=== PATIENT | male | born 1960 | race Two or more races ===

== ENCOUNTER 2020-03-20 07:28 | Inpatient (IN) | payer MEDICAID ==
[~2020-03-20] VITALS: Ht 167.6 cm; Wt 82.4 kg
[2020-03-20] MEDS ORDERED: BACITRACIN 0.9 GM PACKET OINTMENT TP ONE (08:30)
[2020-03-20 08:50] LABS: GLUCOSE,POINT OF CARE 111 MG/DL (70-110)
[2020-03-20 08:52] LABS: BASOPHILS % (AUTO) 0.3 % (0.0-2.0); EOSINOPHILS % (AUTO) 0.3 % (1.0-6.0); LYMPHOCYTES # (AUTO) 2.2 K/uL (1.0-4.8); LYMPHOCYTES % (AUTO) 21.4 % (22.0-44.0); MEAN CORPUSCULAR HEMOGLOBIN 30.5 pg (26.0-34.0); MEAN CORPUSCULAR HGB CONC 34.3 G/dL (31.0-37.0); MEAN CORPUSCULAR VOLUME 89 fL (80-100); MONOCYTES # (AUTO) 0.9 K/uL (0.1-1.0); MONOCYTES % (AUTO) 9.2 % (2.0-9.0); NEUTROPHILS # (AUTO) 6.9 K/uL (1.8-7.7); NEUTROPHILS % (AUTO) 68.8 % (40.0-70.0); PLATELET COUNT (AUTO) 228 K/uL (150-450); RED BLOOD CELL COUNT(AUTO) 4.28 MIL/uL (4.50-5.90); RED CELL DISTRIBUTION WIDTH 13.6 % (11.5-14.5)
[2020-03-20 09:04] LABS: ANION GAP 8 mmol/L (8-16); CALCIUM, TOTAL 8.8 mg/dL (8.8-10.5); CARBON DIOXIDE 28 mmol/L (22-29); CHLORIDE 102 mmol/L (98-107); CREATININE 1.06 mg/dL (0.60-1.30); GLOMERULAR FILTR. RATE CALC > 60 mL/min (>60); GLUCOSE,RANDOM 120 mg/dL (70-110); POTASSIUM 3.4 mmol/L (3.5-5.1); SODIUM SERUM 138 mmol/L (136-145); UREA NITROGEN, BLOOD 17 mg/dL (7-18)
[2020-03-20 09:19] LABS: ALANINE AMINOTRANSFERASE 31 U/L (12-78); ALBUMIN 3.6 g/dL (3.4-5.0); ALKALINE PHOSPHATASE 123 U/L (46-116); ASPARTATE AMINOTRANSFERASE 25 U/L (15-37); BILIRUBIN,TOTAL 1.1 mg/dL (0.1-1.0); FREE T4 (FREE THYROXINE) 1.05 ng/dL (0.76-1.46); THYROID STIMULATING HORMONE 0.95 uIU/mL (0.36-3.74); TOTAL PROTEIN, SERUM 7.5 g/dL (6.4-8.2)
[2020-03-20] MEDS ORDERED: POTASSIUM CHLORIDE 20 MEQ ER TABLET PO ONE (12:15)
[2020-03-20 18:00] LABS: COVID AG,FIA SOURCE NASOPHARYNGEAL
[2020-03-20] MEDS ORDERED: HALOPERIDOL 5 MG TABLET PO PRN (18:15)
[2020-03-20] MEDS ORDERED: LORazepam 2 MG TABLET PO PRN (18:15)
[2020-03-20 21:05] VITALS: BP 136/84
[2020-03-20] MEDS ORDERED: PNEUMOCOCCAL VACCINE POLYVALENT 0.5 ML VIAL [PPSV23] IM ONE (21:15)
[2020-03-20] MEDS ORDERED: INFLUENZA VIRUS VACCINE QVS 2020-21 (6MO+)/PF 60 MCG/0.5 ML SYRINGE IM ONE (21:15)
[2020-03-21 06:52] VITALS: BP 126/80
[2020-03-21 06:59] LABS: GLUCOMETER DEV NAME(LOC) BV2S.; GLUCOSE,POINT OF CARE 89 MG/DL (70-110)
[2020-03-21 07:48] LABS: HEMOGLOBIN A1C 5.5 % (3.8-5.6)
[2020-03-21 07:59] LABS: CHOL/HDL RATIO 2.3 (4.2-7.3); FREE T4 (FREE THYROXINE) 1.01 ng/dL (0.76-1.46); POTASSIUM 3.6 mmol/L (3.5-5.1); THYROID STIMULATING HORMONE 0.32 uIU/mL (0.36-3.74)
[2020-03-21] MEDS ORDERED: LOPERAMIDE HCL 2 MG CAPSULE PO PRN (08:00)
[2020-03-21] MEDS ORDERED: DOCUSATE SODIUM 100 MG CAPSULE PO PRN (08:00)
[2020-03-21] MEDS ORDERED: NICOTINE 14 MG/24 HOUR PATCH TD PRN (08:00)
[2020-03-21] MEDS ORDERED: ALBUTEROL SULFATE HFA 90 MCG/PUFF 8 GM INHALER IH PRN (08:00)
[2020-03-21] MEDS ORDERED: PETROLATUM,WHITE 28 GM JELLY TP PRN (08:00)
[2020-03-21] MEDS ORDERED: IBUPROFEN 400 MG TABLET PO PRN (08:00)
[2020-03-21] MEDS ORDERED: GuaiFENesin/D-METHORPHAN [SUGAR-FREE] 200-20MG/10 ML SYRUP UDCUP PO PRN (08:00)
[2020-03-21] MEDS ORDERED: ONDANSETRON HCL 4 MG TABLET PO PRN (08:00)
[2020-03-21] MEDS ORDERED: MAG HYDROX/AL HYDROX/SIMETH ES 30 ML SUSPENSION UDCUP PO PRN (08:00)
[2020-03-21] MEDS ORDERED: CloNIDine HCL 0.1 MG TABLET PO PRN (08:00)
[2020-03-21] MEDS ORDERED: MAGNESIUM HYDROXIDE SUSPENSION 30 ML UDCUP PO PRN (08:00)
[2020-03-21] MEDS ORDERED: ACETAMINOPHEN 325 MG TABLET PO PRN (08:00)
[2020-03-21 08:31] VITALS: BP 146/96
[2020-03-21] MEDS: BACITRACIN 28 GM OINTMENT TP SCH ×2 (08:41→16:22)
[2020-03-21] MEDS: OLANZapine 5 MG TABLET PO SCH (16:22)
[2020-03-21 16:51] VITALS: BP 144/51
[2020-03-22 03:21] VITALS: BP 152/78
[2020-03-22 08:40] VITALS: BP 107/62
[2020-03-22] MEDS: OLANZapine 5 MG TABLET PO SCH ×2 (09:00→18:52)
[2020-03-22] MEDS: BACITRACIN 28 GM OINTMENT TP SCH ×2 (09:31→18:52)
[2020-03-22 18:57] LABS: COVID AG,FIA SOURCE NASAL SWAB
[2020-03-23 05:07] VITALS: BP 110/64
[2020-03-23 08:08] VITALS: BP 150/77
[2020-03-23] MEDS: BACITRACIN 28 GM OINTMENT TP SCH ×2 (08:40→16:28)
[2020-03-23] MEDS: OLANZapine 5 MG TABLET PO SCH ×2 (08:40→16:27)
[2020-03-23 16:07] VITALS: BP 130/65
[2020-03-24 02:10] VITALS: BP 147/100
[2020-03-24 08:08] VITALS: BP 118/81
[2020-03-24] MEDS: OLANZapine 5 MG TABLET PO SCH ×2 (08:56→16:28)
[2020-03-24] MEDS: BACITRACIN 28 GM OINTMENT TP SCH ×2 (08:56→16:28)
[2020-03-24 16:28] VITALS: BP 143/98
[2020-03-25 08:06] VITALS: BP 147/83
[2020-03-25] MEDS: OLANZapine 5 MG TABLET PO SCH ×2 (09:09→16:46)
[2020-03-25] MEDS: BACITRACIN 28 GM OINTMENT TP SCH ×2 (09:09→16:47)
[2020-03-25 16:08] VITALS: BP 145/88
[2020-03-26 06:30] VITALS: BP 144/87
[2020-03-26] MEDS: OLANZapine 5 MG TABLET PO SCH ×2 (09:06→17:35)
[2020-03-26] MEDS: BACITRACIN 28 GM OINTMENT TP SCH ×2 (09:06→17:42)
[2020-03-26 09:56] VITALS: BP 134/82
[2020-03-26 16:20] VITALS: BP 133/73
[2020-03-27 06:55] VITALS: BP 126/80
[2020-03-27 08:10] VITALS: BP 131/81
[2020-03-27] MEDS: MULTIVITAMINS WITH MINERALS, THERAPEUTIC TABLET PO SCH (08:18)
[2020-03-27] MEDS: OLANZapine 5 MG TABLET PO SCH ×2 (08:18→16:54)
[2020-03-27] MEDS: BACITRACIN 28 GM OINTMENT TP SCH ×2 (08:18→16:54)
[2020-03-27 16:27] VITALS: BP 128/84
[2020-03-28 04:01] VITALS: BP 125/80
[2020-03-28 08:10] VITALS: BP 123/71
[2020-03-28] MEDS: BACITRACIN 28 GM OINTMENT TP SCH ×2 (08:29→16:49)
[2020-03-28] MEDS: OLANZapine 5 MG TABLET PO SCH ×2 (08:30→16:49)
[2020-03-28] MEDS: MULTIVITAMINS WITH MINERALS, THERAPEUTIC TABLET PO SCH (08:30)
[2020-03-28 16:24] VITALS: BP 140/77
[2020-03-29 06:44] VITALS: BP 131/61
[2020-03-29 08:10] VITALS: BP 123/77
[2020-03-29] MEDS: BACITRACIN 28 GM OINTMENT TP SCH ×2 (10:25→16:40)
[2020-03-29] MEDS: OLANZapine 5 MG TABLET PO SCH ×2 (10:25→16:40)
[2020-03-29] MEDS: MULTIVITAMINS WITH MINERALS, THERAPEUTIC TABLET PO SCH (10:25)
[2020-03-29 16:19] VITALS: BP 154/91
[2020-03-30 04:01] VITALS: BP 125/71
[2020-03-30 08:40] VITALS: BP 139/93
[2020-03-30] MEDS: OLANZapine 5 MG TABLET PO SCH ×2 (09:00→17:02)
[2020-03-30] MEDS: MULTIVITAMINS WITH MINERALS, THERAPEUTIC TABLET PO SCH (09:00)
[2020-03-30] MEDS: BACITRACIN 28 GM OINTMENT TP SCH ×2 (10:24→17:02)
[2020-03-30 16:12] VITALS: BP 127/63
[2020-03-31 00:20] VITALS: BP 126/65
[2020-03-31 08:15] VITALS: BP 125/78
[2020-03-31] MEDS: MULTIVITAMINS WITH MINERALS, THERAPEUTIC TABLET PO SCH (09:12)
[2020-03-31] MEDS: OLANZapine 5 MG TABLET PO SCH ×2 (09:13→15:41)
[2020-03-31 16:08] VITALS: BP 106/77
[2020-04-01 01:06] VITALS: BP 110/64
[2020-04-01] MEDS: MULTIVITAMINS WITH MINERALS, THERAPEUTIC TABLET PO SCH (08:56)
[2020-04-01] MEDS: OLANZapine 5 MG TABLET PO SCH (08:56)
[2020-04-01 09:53] VITALS: BP 123/81
[2020-04-01 16:24] VITALS: BP 120/83
[2020-04-01] MEDS: RisperiDONE 2 MG TABLET PO SCH (16:41)
[2020-04-01] MEDS: ZOLPIDEM TARTRATE 10 MG TABLET PO PRN (22:08)
[2020-04-02 05:27] VITALS: BP 112/60
[2020-04-02 08:24] VITALS: BP 132/90
[2020-04-02] MEDS: MULTIVITAMINS WITH MINERALS, THERAPEUTIC TABLET PO SCH (08:28)
[2020-04-02] MEDS: RisperiDONE 2 MG TABLET PO SCH ×2 (08:28→16:37)
[2020-04-02 16:09] VITALS: BP 130/90
[2020-04-03 06:08] VITALS: BP 118/83
[2020-04-03] MEDS: MULTIVITAMINS WITH MINERALS, THERAPEUTIC TABLET PO SCH (08:27)
[2020-04-03] MEDS: RisperiDONE 2 MG TABLET PO SCH ×2 (08:27→16:16)
[2020-04-03 08:32] VITALS: BP 108/65
[2020-04-03 17:35] VITALS: BP 128/79
[2020-04-03] MEDS: ZOLPIDEM TARTRATE 10 MG TABLET PO PRN (22:01)
[2020-04-04 00:20] VITALS: BP 124/62
[2020-04-04 08:32] VITALS: BP 142/89
[2020-04-04] MEDS: RisperiDONE 2 MG TABLET PO SCH ×2 (08:35→16:56)
[2020-04-04] MEDS: MULTIVITAMINS WITH MINERALS, THERAPEUTIC TABLET PO SCH (08:35)
[2020-04-04 16:15] VITALS: BP 136/81
[2020-04-05 00:21] VITALS: BP 134/69
[2020-04-05] MEDS: ZOLPIDEM TARTRATE 10 MG TABLET PO PRN ×2 (02:13→23:46)
[2020-04-05 04:54] VITALS: BP 138/90
[2020-04-05 08:28] VITALS: BP 146/92
[2020-04-05] MEDS: MULTIVITAMINS WITH MINERALS, THERAPEUTIC TABLET PO SCH (09:02)
[2020-04-05] MEDS: RisperiDONE 2 MG TABLET PO SCH ×2 (09:02→17:26)
[2020-04-05 16:18] VITALS: BP 139/79
[2020-04-06 05:55] VITALS: BP 128/70
[2020-04-06 08:13] VITALS: BP 135/80
[2020-04-06] MEDS: RisperiDONE 2 MG TABLET PO SCH ×2 (08:14→17:00)
[2020-04-06] MEDS: MULTIVITAMINS WITH MINERALS, THERAPEUTIC TABLET PO SCH (08:14)
[2020-04-06 16:12] VITALS: BP 130/60
[2020-04-07 05:32] VITALS: BP 121/62
[2020-04-07] MEDS: MULTIVITAMINS WITH MINERALS, THERAPEUTIC TABLET PO SCH (08:18)
[2020-04-07] MEDS: RisperiDONE 2 MG TABLET PO SCH ×2 (08:18→16:32)
[2020-04-07 08:50] VITALS: BP 131/76
[2020-04-07] MEDS ORDERED: RISP2TAB45 PO (12:29)
[2020-04-07 16:29] VITALS: BP 112/70
== END 2020-04-07 19:24 | disposition home or self-care (01) | DRG 751 ==
LOC: EMS 07:31 → B2S 18:34 → B3A 03-22 18:06 → B2S 03-30 21:11
PROVIDERS: ADMIT Psychiatry & Neurology Psychiatry; ATTEND Psychiatry & Neurology Psychiatry
DX: F29 Unspecified psychosis not due to a substance or known physiological condition (principal); Z59.0 Homelessness; E11.9 Type 2 diabetes mellitus without complications; F03.90 Unspecified dementia, unspecified severity, without behavioral disturbance, psychotic disturbance, mood disturbance, and anxiety; E87.6 Hypokalemia; R03.0 Elevated blood-pressure reading, without diagnosis of hypertension; E80.6 Other disorders of bilirubin metabolism; R29.6 Repeated falls; D64.9 Anemia, unspecified; R45.850 Homicidal ideations; H91.90 Unspecified hearing loss, unspecified ear; Z91.81 History of falling; Z20.828 Contact with and (suspected) exposure to other viral communicable diseases; Z28.21 Immunization not carried out because of patient refusal
CPT/HCPCS: 83036; 84132; 84439; 84443; 87426; 90686; G0480; J3535